=== PATIENT | female | born 1975 | race Hispanic/Latino ===

== ENCOUNTER → 2020-12-25 | Outpatient (CLI) | payer BC | END | disposition home or self-care (01) | LOC: RAH 07:36 | PROVIDERS: ATTEND Neurological Surgery | DX: R10.13 Epigastric pain (principal); L02.216 Cutaneous abscess of umbilicus; K42.9 Umbilical hernia without obstruction or gangrene; K57.90 Diverticulosis of intestine, part unspecified, without perforation or abscess without bleeding | CPT/HCPCS: 74176 ==